=== PATIENT | male | born 1990 | race Caucasian/White ===

== ENCOUNTER 2017-12-16 21:15 | Emergency (ER) | payer OTHER ==
[2017-12-16] MEDS: IBUPROFEN 600 MG TAB PO (22:09)
== END 2017-12-16 23:33 | disposition home or self-care (01) ==
LOC: FTE 21:15
DX: S89.92XA Unspecified injury of left lower leg, initial encounter (principal); F17.210 Nicotine dependence, cigarettes, uncomplicated; W01.0XXA Fall on same level from slipping, tripping and stumbling without subsequent striking against object, initial encounter; Y92.9 Unspecified place or not applicable
CPT/HCPCS: 73562; 73590; 99283-25